=== PATIENT | male | born 1985 | race Caucasian/White ===

== ENCOUNTER 2017-12-16 17:16 | Emergency (ER) ==
[~2017-12-16] VITALS: Ht 180.3 cm; Wt 74.8 kg
[2017-12-16 17:42] VITALS: BP 141/74
== END 2017-12-16 19:10 | disposition home or self-care (01) ==
LOC: ER 17:19
DX: S62.161A Displaced fracture of pisiform, right wrist, initial encounter for closed fracture (principal); X50.0XXA Overexertion from strenuous movement or load, initial encounter; X50.9XXA Other and unspecified overexertion or strenuous movements or postures, initial encounter; Y93.89 Activity, other specified; Y92.89 Other specified places as the place of occurrence of the external cause; Y99.8 Other external cause status
CPT/HCPCS: 73110; A4606; Z7610